=== PATIENT | male | born 1950 | race Caucasian/White ===

== ENCOUNTER 2020-11-02 16:36 | Emergency (ER) | payer BC, MEDICARE ==
[2020-11-02 16:51] VITALS: BP 135/78; PULSE 104
[2020-11-02] MEDS ORDERED: Acetaminophen 325 MG Tab PO PRN (17:21)
--- NOTE | 2020-11-02 17:23 | EDM.PDOC ---
ED HPI GENERAL MEDICAL PROBLEM - General Chief Complaint: Respiratory Problem Stated Complaint: DIFFICULTY BREATHING Time Seen by Provider: 11/02/20 17:17 Source of Information: Reports: Patient, RN Notes Reviewed History Limitations: Reports: No Limitations - History of Present Illness INITIAL COMMENTS - FREE TEXT/NARRATIVE: 70-year-old gentleman presents emergency department a complaint of shortness of breath, he recently had a new tracheostomy placed a couple of days ago since then that time he has been feeling more short of breath no significant cough or sputum production no fevers no chest pain no other GI symptomatologies - Related Data Allergies Allergy/AdvReac Type Severity Reaction Status Date / Time No Known Allergies Allergy Verified 11/02/20 16:49 Home Meds: Home Meds Doxazosin [Cardura] 2 mg PO DAILY 12/12/16 [History] Levothyroxine [Levothroid] 137 mcg PO DAILY 12/12/16 [History] Omeprazole 20 mg PO DAILY 12/12/16 [History] Past Medical History Endocrine/Metabolic History: Reports: Hypothyroidism - Past Surgical History HEENT Surgical History: Reports: Tonsillectomy Other HEENT Surgeries/Procedures: trach Endocrine Surgical History: Reports: Thyroidectomy Other Oncologic Surgeries/Procedures: Throat cancer. Voice box was removed 2012 Social & Family History - Tobacco Use Tobacco Use Status *Q: Never Tobacco User ED ROS GENERAL - Review of Systems Review Of Systems: See Below Constitutional: Reports: No Symptoms HEENT: Reports: No Symptoms Respiratory: Reports: Shortness of Breath. Denies: Wheezing, Cough, Sputum Cardiovascular: Reports: Dyspnea on Exertion. Denies: Chest Pain GI/Abdominal: Reports: No Symptoms ED EXAM, GENERAL - Physical Exam Exam: See Below Exam Limited By: No Limitations General Appearance: Alert, WD/WN, No Apparent Distress Respiratory/Chest: No Respiratory Distress, No Accessory Muscle Use, Chest Non- Tender, Rhonchi Cardiovascular: Regular Rate, Rhythm, No Murmur GI/Abdominal: Soft, Non-Tender Course - Vital Signs Last Recorded V/S: Last Vital Signs Temp 95.4 F L 11/02/20 16:57 Pulse 104 H 11/02/20 16:57 Resp 18 11/02/20 16:57 BP 135/78 11/02/20 16:57 Pulse Ox 95 11/02/20 16:57 - Orders/Labs/Meds Orders: Active Orders 24 hr Category Date Time Status Nurse Communication: Isolation [RC] ASDIRECTED Care 11/02/20 17:21 Active RT Aerosol Therapy [RC] ASDIRECTED Care 11/02/20 18:17 Ordered Acetaminophen [TylenoL] Med 11/02/20 17:21 Active 650 mg PO Q4H PRN Isolation [COMM] Stat Oth 11/02/20 17:21 Ordered Medication Orders Acetaminophen (Tylenol) 650 mg PO Q4H PRN PRN Reason: Fever Greater Than 101 Last Admin: 11/02/20 17:36 Dose: 650 mg Documented by: JYOTI Labs: Laboratory Tests 11/02/20 11/02/20 11/02/20 Range/Units 17:21 17:34 17:34 WBC 6.6 (4.5-11.0) K/uL RBC 4.42 (4.30-5.90) M/uL Hgb 11.4 L (12.0-15.0) g/dL Hct 35.2 L (40.0-54.0) % MCV 80 (80-98) fL MCH 26 L (27-31) pg MCHC 32 (32-36) % Plt Count 317 (150-400) K/uL Neut % (Auto) 83 H (36-66) % Lymph % (Auto) 9 L (24-44) % Rice % (Auto) 7 H (2-6) % Eos % (Auto) 1 L (2-4) % Baso % (Auto) 0 (0-1) % Sodium 132 L (140-148) mmol/L Potassium 3.5 L (3.6-5.2) mmol/L Chloride 95 L (100-108) mmol/L Carbon Dioxide 25 (21-32) mmol/L Anion Gap 15.5 H (5.0-14.0) mmol/L BUN 15 (7-18) mg/dL Creatinine 1.2 (0.8-1.3) mg/dL Est Cr Clr Drug Dosing 56.46 mL/min Estimated GFR (MDRD) 60 (>60) Glucose 110 H (74-106) mg/dL Lactic Acid (0.4-2.0) mmol/L Calcium 8.5 (8.5-10.1) mg/dL Total Bilirubin 0.7 (0.2-1.0) mg/dL Direct Bilirubin 0.32 H (0.0-0.2) mg/dL Indirect Bilirubin 0.38 AST 41 H (15-37) U/L ALT 22 (12-78) U/L Alkaline Phosphatase 106 (46-116) U/L Lactate Dehydrogenase 172 (85-227) U/L C-Reactive Protein 14.08 H (0.0-0.3) mg/dL Total Protein 7.8 (6.4-8.2) g/dL Albumin 2.5 L (3.4-5.0) g/dL Globulin 5.3 H (2.3-3.5) g/dL Albumin/Globulin Ratio 0.5 L (1.2-2.2) Procalcitonin ng/mL Influenza Type A RNA Negative (NEGATIVE) RSV RNA (INAAT) Negative (NEGATIVE) Influenza Type B RNA Negative (NEGATIVE) SARS-CoV-2 RNA (ERNESTINA) Negative (NEGATIVE) 11/02/20 11/02/20 Range/Units 17:34 17:34 WBC (4.5-11.0) K/uL RBC (4.30-5.90) M/uL Hgb (12.0-15.0) g/dL Hct (40.0-54.0) % MCV (80-98) fL MCH (27-31) pg MCHC (32-36) % Plt Count (150-400) K/uL Neut % (Auto) (36-66) % Lymph % (Auto) (24-44) % Rice % (Auto) (2-6) % Eos % (Auto) (2-4) % Baso % (Auto) (0-1) % Sodium (140-148) mmol/L Potassium (3.6-5.2) mmol/L Chloride (100-108) mmol/L Carbon Dioxide (21-32) mmol/L Anion Gap (5.0-14.0) mmol/L BUN (7-18) mg/dL Creatinine (0.8-1.3) mg/dL Est Cr Clr Drug Dosing mL/min Estimated GFR (MDRD) (>60) Glucose (74-106) mg/dL Lactic Acid 1.2 (0.4-2.0) mmol/L Calcium (8.5-10.1) mg/dL Total Bilirubin (0.2-1.0) mg/dL Direct Bilirubin (0.0-0.2) mg/dL Indirect Bilirubin AST (15-37) U/L ALT (12-78) U/L Alkaline Phosphatase (46-116) U/L Lactate Dehydrogenase (85-227) U/L C-Reactive Protein (0.0-0.3) mg/dL Total Protein (6.4-8.2) g/dL Albumin (3.4-5.0) g/dL Globulin (2.3-3.5) g/dL Albumin/Globulin Ratio (1.2-2.2) Procalcitonin 0.15 ng/mL Influenza Type A RNA (NEGATIVE) RSV RNA (INAAT) (NEGATIVE) Influenza Type B RNA (NEGATIVE) SARS-CoV-2 RNA (ERNESTINA) (NEGATIVE) Meds: Medications Generic Name Dose Route Start Last Admin Trade Name Freq PRN Reason Stop Dose Admin Acetaminophen 650 mg 11/02/20 17:21 11/02/20 17:36 Tylenol PO 650 mg Q4H PRN Administration Fever Greater Than 101 Discontinued Medications Generic Name Dose Route Start Last Admin Trade Name Freq PRN Reason Stop Dose Admin Albuterol/Ipratropium 3 ml 11/02/20 18:17 11/02/20 18:24 Duoneb 3.0-0.5 Mg/3 Ml NEB 11/02/20 18:18 3 ml ONETIME ONE Administration Departure - Departure Time of Disposition: 19:07 Disposition: Home, Self-Care 01 Condition: Fair Clinical Impression: Bronchitis - Discharge Information Instructions: Acute Bronchitis, Adult, [id number] Referrals: PCP,None [Primary Care Provider] - Forms: ED Department Discharge Additional Instructions: Take full course of antibiotics, please followup with your primary care provider in 3-5 days if not better, please call return to the emergency department with worsening of symptoms. Sepsis Event Note (ED) - Evaluation Sepsis Screening Result: No Definite Risk - Focused Exam Vital Signs: Vital Signs Temp Pulse Resp BP Pulse Ox 11/02/20 16:57 95.4 F L 104 H 18 135/78 95 11/02/20 16:44 95.4 F L 104 H 18 135/78 95 - My Orders Last 24 Hours: My Active Orders 11/02/20 17:21 Nurse Communication: Isolation [RC] ASDIRECTED Acetaminophen [TylenoL] 650 mg PO Q4H PRN Isolation [COMM] Stat 11/02/20 18:17 RT Aerosol Therapy [RC] ASDIRECTED - Assessment/Plan Last 24 Hours: My Active Orders 11/02/20 17:21 Nurse Communication: Isolation [RC] ASDIRECTED Acetaminophen [TylenoL] 650 mg PO Q4H PRN Isolation [COMM] Stat 11/02/20 18:17 RT Aerosol Therapy [RC] ASDIRECTED Plan: Assessment Acuity = acute Site and laterality = bronchitis Etiology = unknown Manifestations = none Location of injury = Home Lab values = CBC, CMP unremarkable CRP elevated around 14 Covid was negative influenza negative however chest x-ray does show opacities in the right lobe no definite infiltrate consistent with pneumonia Plan Because he has been ill for a little over a week elected to treat empirically a azithromycin 5-day course follow-up primary care 3 to 5 days if not better This note was dictated using [employer] voice recognition software please call with any questions on syntax or grammar.
[2020-11-02 18:13] LABS: CORONAVIRUS COVID-19 NAA NEGATIVE (NEGATIVE)
[2020-11-02] MEDS ORDERED: Albuterol/Ipratropium 3.0-0.5 MG/3 ML Neb Soln NEB ONE (18:17)
--- NOTE | 2020-11-02 19:02 | CRLCR ---
INDICATION: Respiratory failure TECHNIQUE: Portable chest No comparison FINDINGS: Enlarged cardiac silhouette. Diffuse right patchy airspace opacities. Moderate right effusion. No pneumothorax. Left lung appears clear. Dictated by Sepideh Bales MD @ Nov 02 2020 6:59PM Signed by Dr. Sepideh Bales @ Nov 02 2020 7:00PM
== END 2020-11-02 19:20 | disposition home or self-care (01) ==
LOC: JP.ED 16:36
DX: J40 Bronchitis, not specified as acute or chronic (principal); Z20.822 Contact with and (suspected) exposure to COVID-19; E03.9 Hypothyroidism, unspecified; Z79.899 Other long term (current) drug therapy
CPT/HCPCS: 0241U; 36415; 71045; 80048; 80076; 83605; 83615; 84145; 85025; 86140; 94640; 99285; 99285-25; A9270-GY; J7620-GY

== ENCOUNTER 2020-11-10 16:26 | Emergency (ER) | payer MEDICARE ==
[2020-11-10 16:49] VITALS: BP 144/83; PULSE 98
--- NOTE | 2020-11-10 17:26 | EDM.PDOC ---
ED HPI GENERAL MEDICAL PROBLEM - General Chief Complaint: Respiratory Problem Stated Complaint: DIFFICULTY BREATHING Time Seen by Provider: 11/10/20 17:04 Source of Information: Reports: Patient, Family, RN Notes Reviewed History Limitations: Reports: Physical Impairment - History of Present Illness INITIAL COMMENTS - FREE TEXT/NARRATIVE: 70-year-old gentleman presents emergency department a complaint of shortness of breath, I the opportunity to evaluate him on 02 November I did not find any significant lab abnormality I did do a trial of antibiotics of azithromycin. His son is with him today he is concerned about dementia and he believes his father is focused on his tracheostomy. They do have an appointment with their primary care tomorrow for further evaluation of his mental health denies Pain Score (Numeric/FACES): 0 - Related Data Allergies Allergy/AdvReac Type Severity Reaction Status Date / Time No Known Allergies Allergy Verified 11/10/20 16:49 Home Meds: Home Meds Doxazosin [Cardura] 2 mg PO DAILY 12/12/16 [History] Levothyroxine [Levothroid] 137 mcg PO DAILY 12/12/16 [History] Omeprazole 20 mg PO DAILY 12/12/16 [History] Past Medical History Endocrine/Metabolic History: Reports: Hypothyroidism - Infectious Disease History Infectious Disease History: Reports: Chicken Pox - Past Surgical History HEENT Surgical History: Reports: Tonsillectomy Other HEENT Surgeries/Procedures: trach Respiratory Surgical History: Reports: Tracheostomy Endocrine Surgical History: Reports: Thyroidectomy Other Oncologic Surgeries/Procedures: Throat cancer. Voice box was removed 2012 Social & Family History - Tobacco Use Tobacco Use Status *Q: Former Tobacco User Years of Tobacco use: 30 Packs/Tins Daily: 1 Used Tobacco, but Quit: Yes Month/Year Tobacco Last Used: 2012 Second Hand Smoke Exposure: No - Caffeine Use Caffeine Use: Reports: Coffee, Energy Drinks - Recreational Drug Use Recreational Drug Use: No ED ROS GENERAL - Review of Systems Review Of Systems: See Below Constitutional: Reports: No Symptoms Respiratory: Reports: Shortness of Breath Cardiovascular: Reports: No Symptoms Neurological: Reports: Other (Has noticed problems with memory his son is here to help) ED EXAM, GENERAL - Physical Exam Exam: See Below Exam Limited By: Physical Impairment General Appearance: Alert, No Apparent Distress Respiratory/Chest: No Respiratory Distress, Lungs Clear, Normal Breath Sounds, No Accessory Muscle Use, Chest Non-Tender Cardiovascular: Regular Rate, Rhythm, No Murmur Course - Vital Signs Last Recorded V/S: Last Vital Signs Temp 97.2 F 11/10/20 16:48 Pulse 98 11/10/20 16:48 Resp 20 11/10/20 16:48 BP 144/83 H 11/10/20 16:48 Pulse Ox 93 L 11/10/20 16:48 Departure - Departure Time of Disposition: 17:26 Disposition: Home, Self-Care 01 Condition: Poor Clinical Impression: Memory changes - Discharge Information Referrals: Juan Miguel Coleman NP [Primary Care Provider] - Additional Instructions: Please keep your follow-up appointment with your primary care tomorrow, call return to the emergency department worsening symptoms Sepsis Event Note (ED) - Evaluation Sepsis Screening Result: No Definite Risk - Focused Exam Vital Signs: Vital Signs Temp Pulse Resp BP Pulse Ox 11/10/20 16:48 97.2 F 98 20 144/83 H 93 L - Assessment/Plan Plan: Assessment Acuity = acute Site and laterality = memory problems Etiology = suspicious for underlying dementia Manifestations = none Location of injury = Home Lab values = none Plan I had a long discussion with the son the plan is to meet with his primary care t omorrow he felt he was safe to be at home but he is going to try to get home health set up for some services and then they can start the dementia work-up with his primary care tomorrow which probably would include neuropsychiatric testing This note was dictated using [employer] voice recognition software please call with any questions on syntax or grammar.
== END 2020-11-10 17:36 | disposition home or self-care (01) ==
LOC: JP.ED 16:26
DX: R41.3 Other amnesia (principal); E03.9 Hypothyroidism, unspecified; Z79.899 Other long term (current) drug therapy; Z87.891 Personal history of nicotine dependence
CPT/HCPCS: 99284